=== PATIENT | female | born 1950 ===

== ENCOUNTER 2017-11-16 10:40 | Day surgery (SDC) | payer OTHER | END 2017-11-16 15:25 | disposition home or self-care (01) | LOC: AMB-ENDOS 10:40 | DX: K20.8 Other esophagitis (principal); K29.30 Chronic superficial gastritis without bleeding ==

== ENCOUNTER 2018-03-07 07:00 | Day surgery (SDC) | payer OTHER ==
[~2018-03-07 07:00] MED LIST: ATENOLOL25 MG
[2018-03-07] MEDS ORDERED: PERCOCET 5-3251 EACH PO (17:59)
[2018-03-07] MEDS ORDERED: CARAFATE1 GM/10 ML PO (17:59)
[2018-03-07] MEDS ORDERED: POLY119PG PO (18:00)
[2018-03-07] MEDS ORDERED: SURFAK240 M1 PO (18:00)
[2018-03-07] MEDS ORDERED: ZOFRAN4 MG PO (18:01)
== END 2018-03-07 13:00 | disposition home or self-care (01) ==
LOC: CIR.AMB 07:00 → SURG 07:00 → EDSTATUS 08:30 → SURG 08:30 → CIR.AMB 13:00 → O/R 14:04 → SURG 14:04 → O/R 03-08 11:15
DX: K44.9 Diaphragmatic hernia without obstruction or gangrene (principal); K21.9 Gastro-esophageal reflux disease without esophagitis; K42.9 Umbilical hernia without obstruction or gangrene